=== PATIENT | male | born 1955 | race African-American/Black ===

== ENCOUNTER → 2017-05-10 | Outpatient (CLI) | payer BC ==
[2017-05-10 08:48] LABS: Cholesterol 170 mg/dL (< 200); HDL Cholesterol 45 mg/dL (40-59); LDL Cholesterol 114 mg/dL (< 100); Triglycerides 102 mg/dL (< 150)
== END | disposition home or self-care (01) ==
LOC: LAB 08:12
PROVIDERS: ATTEND Family Medicine
DX: E78.5 Hyperlipidemia, unspecified (principal)
CPT/HCPCS: 36415; 80061